=== PATIENT | female | born 1940 | race African-American/Black ===

== ENCOUNTER 2024-08-12 09:46 | Outpatient (CLI) | payer MEDICARE | END 2024-08-12 09:47 | disposition home or self-care (01) | LOC: CSHRAD 09:46 | PROVIDERS: ATTEND Student in an Organized Health Care Education/Training Program | DX: R05.3 Chronic cough (principal); R91.8 Other nonspecific abnormal finding of lung field | CPT/HCPCS: 71046 ==

== ENCOUNTER 2024-08-15 09:25 | Outpatient (CLI) | payer MEDICARE ==
[2024-08-15] MEDS ORDERED: Iopamidol 300 61% 100 ML VIAL FS ONE (12:20)
== END 2024-08-15 09:26 | disposition home or self-care (01) ==
LOC: CSHCT 09:25
PROVIDERS: ATTEND Student in an Organized Health Care Education/Training Program
DX: R93.89 Abnormal findings on diagnostic imaging of other specified body structures (principal); R05.3 Chronic cough; R59.1 Generalized enlarged lymph nodes
CPT/HCPCS: 36415; 71260; 82565; Q9967